=== PATIENT | female | born 1970 | race Hispanic/Latino ===

== ENCOUNTER 2023-04-18 11:00 | Emergency (ER) | payer BC ==
[~2023-04-18] VITALS: Ht 157.5 cm; Wt 65.3 kg
[2023-04-18 11:23] LABS: BASOPHILS # (AUTO) 0.02 K/uL (0.00-0.20); BASOPHILS % (AUTO) 0.2 % (0.0-5.0); EOSINOPHILS # (AUTO) 0.02 K/uL (0.00-0.70); EOSINOPHILS % (AUTO) 0.2 % (0.0-8.0); HEMATOCRIT 40.7 % (36-48); IMMATURE GRANULOCYTE ABSOLUTE 0.04 K/uL (0-1); LYMPHOCYTES # (AUTO) 0.2 K/uL (1.0-4.8); LYMPHOCYTES % (AUTO) 2.2 % (21.0-51.0); MEAN CORPUSCULAR HEMOGLOBIN 31.6 pg (27.0-33.0); MEAN CORPUSCULAR HGB CONC 34.9 g/dL (32.0-36.0); MEAN CORPUSCULAR VOLUME 90.6 fL (79-99); MONOCYTES # (AUTO) 0.2 K/uL (0.1-1.0); MONOCYTES % (AUTO) 2.5 % (3.0-13.0); NEUTROPHILS # (AUTO) 9.2 K/uL (1.8-7.7); NEUTROPHILS % (AUTO) 94.5 % (40.0-77.0); PLATELET COUNT (AUTO) 175 K/uL (130-400); RED BLOOD CELL COUNT(AUTO) 4.49 MIL/uL (4.00-5.50); RED CELL DISTRIBUTION WIDTH 12.1 % (11.0-15.5); WHITE BLOOD COUNT (AUTO) 9.7 K/uL (4.8-10.8)
[2023-04-18] MEDS ORDERED: ONDANSETRON 4MG INJ IVP ONE (11:30)
[2023-04-18] MEDS ORDERED: LIDOCAINE HCL 2% VISCOUS 15 ML UDCUP PO ONE (11:30)
[2023-04-18] MEDS ORDERED: 0.9%NACL 1000ML 1,000 ML IV ONE (11:30)
[2023-04-18] MEDS ORDERED: MAG/ALUM/SIMETH 30 ML UDCUP PO ONE (11:30)
[2023-04-18 11:33] LABS: CREATININE 0.8 mg/dL (0.5-1.5); POTASSIUM 3.7 mmol/L (3.5-5.1)
[2023-04-18 11:39] LABS: ALBUMIN 3.9 g/dL (3.5-5.0); BILIRUBIN,TOTAL 0.7 mg/dL (0.2-1.0); TOTAL PROTEIN, SERUM 7.5 g/dL (6.0-8.3)
[2023-04-18 11:58] LABS: INR 0.94 (0.85-1.15); PROTHROMBIN TIME 10.9 SEC (9.6-11.6)
[2023-04-18 11:59] LABS: PARTIAL THROMBOPLASTIN TIME 24.7 SEC (26.3-35.5)
[2023-04-18 12:56] LABS: ADD UA MICROSCOPIC NO; APPEARANCE,URINE CLEAR (CLEAR); BILIRUBIN,URINE NEGATIVE (NEGATIVE); COLOR,URINE LIGHT-YELLOW (YELLOW); GLUCOSE, URINE (UA) NEGATIVE (NEGATIVE); KETONES,URINE NEGATIVE (NEGATIVE); LEUKOCYTE ESTERASE ,URINE NEGATIVE Leu/uL (NEGATIVE); NITRATE,URINE NEGATIVE (NEGATIVE); OCCULT BLOOD,URINE SMALL (NEGATIVE); PH,URINE 5.5 (5.0-8.0); PROTEIN,URINE NEGATIVE (NEGATIVE); UROBILINOGEN,URINE 0.2 mg/dL (0.2-1.0)
[2023-04-18] MEDS ORDERED: ONDA4TAB10 PO (13:09)
[2023-04-18 13:17] VITALS: BP 108/60; PULSE 80; RESP 17; O2SAT 100
== END 2023-04-18 13:19 | disposition home or self-care (01) ==
LOC: EDH 11:00
DX: K52.9 Noninfective gastroenteritis and colitis, unspecified (principal); R11.2 Nausea with vomiting, unspecified; E86.0 Dehydration; Z90.49 Acquired absence of other specified parts of digestive tract; Z68.26 Body mass index [BMI] 26.0-26.9, adult
CPT/HCPCS: 99284; 96374; 96361; 82550; 84484; 80053; 83690; 85025; 85610; 85730; 87040 ×2; 87088; 83605; 81003; 36415; J7030; J2405